=== PATIENT | male | born 1975 | race Caucasian/White ===

== ENCOUNTER 2020-10-21 18:56 | Emergency (ER) | payer OTHER ==
[2020-10-21] MEDS ORDERED: NORCO 5-325 TA1 EACH PO (21:47)
[2021-01-22] MEDS ORDERED: ADVIL200 M1 PO (13:22)
[2021-01-22] MEDS ORDERED: DAILY VALUE1 EACH PO (13:22)
[2021-01-23] MEDS ORDERED: PERCOCET 5-3251 EACH PO (07:04)
== END 2020-10-21 21:50 | disposition home or self-care (01) ==
LOC: FER 18:56
DX: S42.291A Other displaced fracture of upper end of right humerus, initial encounter for closed fracture (principal); V86.96XA Unspecified occupant of dirt bike or motor/cross bike injured in nontraffic accident, initial encounter
CPT/HCPCS: 73030; J2270

== ENCOUNTER → 2021-01-23 | Day surgery (SDC) | payer OTHER ==
[~2021-01-23] VITALS: Ht 172.7 cm; Wt 120.7 kg
[~2021-01-23] MED LIST: ADVIL200 M1 PO; DAILY VALUE1 EACH PO; NORCO 5-325 TA1 EACH PO; PERCOCET 5-3251 EACH PO
[2021-01-23 10:09] LABS: HCT 46.8 % (42.0-52.0); HGB 15.5 g/dl (13.2-18.0); MCH 30.2 pg (25.0-31.0); MCHC 33.1 g/dL (32.0-36.0); MCV 91.2 fL (78.0-100.0); MPV 9.9 fL (6.0-9.5); RBC 5.13 M/uL (4.70-6.00); RDW 13.3 % (11.5-14.0); WBC 6.5 K/uL (4.0-10.5)
[2021-01-23 10:33] LABS: ALBUMIN 4.1 g/dL (3.4-5.0); BILIRUBIN - TOTAL 0.6 mg/dL (0.2-1.0); BUN/CREAT RATIO (CALC) 30.4 RATIO; CREATININE 0.69 mg/dL (0.67-1.17); GLOBULIN (CALCULATION) 3.9 g/dL; POTASSIUM 4.1 mmol/L (3.5-5.1)
== END | disposition home or self-care (01) ==
LOC: FAS 09:02
PROVIDERS: Orthopaedic Surgery
DX: M75.111 Incomplete rotator cuff tear or rupture of right shoulder, not specified as traumatic (principal); M75.01 Adhesive capsulitis of right shoulder; G89.29 Other chronic pain; K76.0 Fatty (change of) liver, not elsewhere classified; G47.30 Sleep apnea, unspecified; Z99.89 Dependence on other enabling machines and devices; Z79.1 Long term (current) use of non-steroidal anti-inflammatories (NSAID); Z79.891 Long term (current) use of opiate analgesic
CPT/HCPCS: 36415; 71045; 80053; 93005; J0171; J0690; J0735; J1100; J1885; J2250; J2405; J2704; J2795; J7120